=== PATIENT | male | born 1960 | race Caucasian/White ===

== ENCOUNTER 2019-06-05 08:56 | Emergency (ER) | payer BC ==
[~2019-06-05] VITALS: Ht 190.5 cm; Wt 123.4 kg
[2019-06-05 10:27] LABS: BASOPHILS ABSOLUTE AUTO 0.06 K/mm3 (0.00-0.23); BASOPHILS PERCENT AUTO 1 % (0-2); EOSINOPHILS ABSOLUTE AUTO 0.22 K/mm3 (0.00-0.68); EOSINOPHILS PERCENT AUTO 4 % (0-6); Hematocrit 47.9 % (37.0-53.0); Hemoglobin 15.8 g/dL (13.5-17.5); IMMATURE GRAN ABSOLUTE AUTO 0.01 K/mm3 (0.00-0.10); IMMATURE GRAN PERCENT AUTO 0 % (0-1); LYMPHOCYTES ABSOLUTE AUTO 1.47 K/mm3 (0.84-5.20); LYMPHOCYTES PERCENT AUTO 25 % (21-46); MONOCYTES ABSOLUTE AUTO 0.66 K/mm3 (0.16-1.47); MONOCYTES PERCENT AUTO 11 % (4-13); Mean Corpuscular HGB 30.9 pg (26.0-34.0); Mean Corpuscular Volume 94 fL (80-100); Mean Platelet Volume 11.5 fL (9.1-12.4); NEUTROPHILS ABSOLUTE AUTO 3.38 K/mm3 (1.96-9.15); NEUTROPHILS PERCENT AUTO 58 % (41-73); Platelet Count 243 K/mm3 (150-400); RDW Coefficient Variation 11.9 % (11.7-14.2); RDW Standard Deviation 41.2 fL (35.1-46.3); Red Blood Cell Count 5.11 M/mm3 (4.30-5.90)
[2019-06-05 10:41] LABS: Alanine Aminotransfer (ALT/SGP 37 U/L (12-78); Albumin, Blood 3.7 g/dL (3.4-5.0); Albumin/Globulin Ratio 0.9 (0.8-1.8); Alk Phos 53 U/L (50-136); Anion Gap 6 mmol/L (6-16); Aspartate Aminotrans (AST/SGOT 21 U/L (12-37); Bilirubin, Total 0.6 mg/dL (0.1-1.0); Blood Urea Nitrogen 14 mg/dL (8-24); Bun/Creatinine Ratio 12.5 (12.0-20.0); CO2, Blood 28 mmol/L (21-32); Calcium, Blood 9.1 mg/dL (8.5-10.1); Chloride, Blood 106 mmol/L (98-108); Creatinine, Blood 1.12 mg/dL (0.60-1.20); Globulin, Blood 3.9 g/dL (2.2-4.0); Glomerular Filtration Rate >60 (60-); Glucose, Blood 86 mg/dL (70-99); Sodium, Blood 140 mmol/L (136-145); Total Protein, Blood 7.6 g/dL (6.4-8.2)
[2019-06-05 10:45] LABS: Troponin I <0.015 ng/mL (0.000-0.040)
[2019-06-05] MEDS ORDERED: Ventolin/Prove6.7 GM INH (12:04)
[2019-06-05] MEDS ORDERED: Prednisone20 MG PO (12:04)
== END 2019-06-05 12:37 | disposition home or self-care (01) ==
LOC: ER 08:56
PROVIDERS: Emergency Medicine
DX: J45.909 Unspecified asthma, uncomplicated (principal); J98.01 Acute bronchospasm
CPT/HCPCS: 71046; 80053; 83880; 84484; 85025; 93005; 93010; 94640; 99285-25; J7512

== ENCOUNTER → 2023-06-03 | Outpatient (CLI) | payer BC ==
[~2023-06-03] MED LIST: Prednisone20 MG PO; Ventolin/Prove6.7 GM INH
[2023-06-03 20:10] LABS: C-REACTIVE PROTEIN, EXT RANGE <0.290 mg/dL (0.000-0.300)
[2023-06-06 21:41] LABS: ANTI-NUCLEAR AB ANA,IGG ELISA Detected (None Detected)
[2023-06-07 19:55] LABS: ANA PATTERN Homogeneous; ANTINUCLEAR AB (ANA),HEP-2,IGG Detected (<1:80)
== END | disposition home or self-care (01) ==
LOC: LAB SHORT 18:07 → LAB 18:07
PROVIDERS: Family Medicine
DX: R53.82 Chronic fatigue, unspecified (principal)
CPT/HCPCS: 84443; 85651; 86140

== ENCOUNTER 2024-01-19 13:41 | Day surgery (SDC) | payer OTHER ==
[~2024-01-19] VITALS: Ht 190.5 cm; Wt 117.3 kg
[~2024-01-19 13:41] MED LIST changes: +Lactated Ringer's 1,000 ML IV ONE; +Lidocaine 2% 5 ML SDV ONE; +Lidocaine HCl/Pf 1% 5 ML VIAL ONE; +Methylene Blue 1% 100 MG/10 ML VIAL ONE
[2024-01-19] MEDS ORDERED: OMEP20ER (13:58)
[2024-01-19] MEDS ORDERED: TADA10TA (13:58)
[2024-01-19] MEDS ORDERED: MONT10T (13:58)
[2024-01-19] MEDS ORDERED: INCRUSE ELLIPTA (13:58)
[2024-01-19] MEDS ORDERED: Lactated Ringer's 1,000 ML IV ONE (14:19)
[2024-01-19] MEDS ORDERED: propofoL 50 ML IV ONE ×3 (14:53→15:32)
[2024-01-19] MEDS ORDERED: Dexmedetomidine HCL 200 MCG / 2 ML ONE (14:59)
--- NOTE | 2024-01-19 15:45 | NUR ---
01/19/24 1546 LENI GLASS PT HAD ESOPHAGUS DIALATED W/ ED 20 AND CINDY 56, 58
[2024-01-19 16:44] VITALS: BP 124/72
== END 2024-01-19 16:51 | disposition home or self-care (01) ==
LOC: ORSCSDS 13:41
PROVIDERS: Internal Medicine Gastroenterology
PROC: 0DB58ZX Excision of Esophagus, Via Natural or Artificial Opening Endoscopic, Diagnostic (ICD-10-PCS; principal; 2024-01-19 15:00)
PROC: 0DBP8ZX Excision of Rectum, Via Natural or Artificial Opening Endoscopic, Diagnostic (ICD-10-PCS; principal; 2024-01-19 15:00)
PROC: 0DBL8ZX Excision of Transverse Colon, Via Natural or Artificial Opening Endoscopic, Diagnostic (ICD-10-PCS; principal; 2024-01-19 15:00)
PROC: 0DB48ZX Excision of Esophagogastric Junction, Via Natural or Artificial Opening Endoscopic, Diagnostic (ICD-10-PCS; principal; 2024-01-19 15:00)
PROC: 0D758ZZ Dilation of Esophagus, Via Natural or Artificial Opening Endoscopic (ICD-10-PCS; principal; 2024-01-19 15:00)
DX: R13.10 Dysphagia, unspecified (principal); K21.00 Gastro-esophageal reflux disease with esophagitis, without bleeding; Z12.11 Encounter for screening for malignant neoplasm of colon; D12.3 Benign neoplasm of transverse colon; K62.1 Rectal polyp; Z80.0 Family history of malignant neoplasm of digestive organs; Z83.719 Family history of colon polyps, unspecified; G47.33 Obstructive sleep apnea (adult) (pediatric); J45.909 Unspecified asthma, uncomplicated; E66.9 Obesity, unspecified; Z68.32 Body mass index [BMI] 32.0-32.9, adult; Z79.899 Other long term (current) drug therapy
CPT/HCPCS: 88305; C1769; J2001; J2704; J7120; Q9968

== ENCOUNTER 2024-05-04 06:41 | Day surgery (SDC) | payer OTHER ==
[~2024-05-04] VITALS: Ht 190.5 cm; Wt 122.2 kg
[~2024-05-04 06:41] MED LIST changes: +INCRUSE ELLIPTA; -Lactated Ringer's 1,000 ML IV ONE; -Lidocaine 2% 5 ML SDV ONE; -Lidocaine HCl/Pf 1% 5 ML VIAL ONE; +MONT10T; -Methylene Blue 1% 100 MG/10 ML VIAL ONE; +OMEP20ER; +TADA10TA
[2024-05-04] MEDS ORDERED: Lactated Ringer's 1,000 ML IV ONE ×2 (07:08→08:09)
[2024-05-04] MEDS ORDERED: Lidocaine HCl 4% 5 ML SDA ONE (07:15)
[2024-05-04] MEDS ORDERED: propofoL 50 ML IV ONE (08:23)
[2024-05-04] MEDS ORDERED: Glycopyrrolate 0.2 MG/ML 1MLVIAL ONE (08:55)
[2024-05-04 09:36] VITALS: BP 126/78
== END 2024-05-04 09:30 | disposition home or self-care (01) ==
LOC: ORSCSDS 06:41
PROVIDERS: Internal Medicine Gastroenterology
PROC: 0DJ08ZZ Inspection of Upper Intestinal Tract, Via Natural or Artificial Opening Endoscopic (ICD-10-PCS; 2024-05-04)
PROC: 0D757ZZ Dilation of Esophagus, Via Natural or Artificial Opening (ICD-10-PCS; principal; 2024-05-04 08:15)
DX: K21.9 Gastro-esophageal reflux disease without esophagitis (principal); R13.10 Dysphagia, unspecified; G47.33 Obstructive sleep apnea (adult) (pediatric); J44.9 Chronic obstructive pulmonary disease, unspecified; Z87.19 Personal history of other diseases of the digestive system; Z79.899 Other long term (current) drug therapy
CPT/HCPCS: J2003; J2704; J7120